=== PATIENT | male | born 1970 | race Caucasian/White ===

== ENCOUNTER → 2016-10-18 | Outpatient (REF) | payer OTHER ==
[2016-10-18 20:10] LABS: ALBUMIN 3.3 GM/DL (3.2-5.2); ANION GAP 9 MEQ/L (8-16); BLOOD UREA NITROGEN 16 MG/DL (7-18); CALCIUM LEVEL 9.1 MG/DL (8.5-10.1); CARBON DIOXIDE LEVEL 26 MEQ/L (21-32); CHLORIDE LEVEL 102 MEQ/L (98-107); CREATININE FOR GFR 1.23 MG/DL (0.70-1.30); GLOMERULAR FILTRATION RATE > 60.0 (>60); GLUCOSE, FASTING 189 MG/DL (70-105); PHOSPHORUS LEVEL 2.7 MG/DL (2.5-4.9); POTASSIUM SERUM 4.1 MEQ/L (3.5-5.1); SODIUM LEVEL 137 MEQ/L (136-145); URIC ACID 6.2 MG/DL (3.5-7.2)
== END ==
LOC: M LAB REF 17:27
PROVIDERS: ATTEND Internal Medicine Nephrology
DX: N18.2 Chronic kidney disease, stage 2 (mild) (principal); E11.9 Type 2 diabetes mellitus without complications; I10 Essential (primary) hypertension; M10.9 Gout, unspecified

== ENCOUNTER → 2016-10-22 | Outpatient (CLI) | payer OTHER ==
[2016-10-22 13:30] LABS: ALBUMIN 3.4 GM/DL (3.2-5.2); ALBUMIN/GLOBULIN RATIO 0.97 (1.00-1.93); ALKALINE PHOSPHATASE 69 U/L (45-117); ALT/SGPT 53 U/L (12-78); ANION GAP 11 MEQ/L (8-16); AST/SGOT 25 U/L (15-37); BILIRUBIN,TOTAL 0.4 MG/DL (0.2-1.0); BLOOD UREA NITROGEN 18 MG/DL (7-18); CALCIUM LEVEL 8.7 MG/DL (8.5-10.1); CARBON DIOXIDE LEVEL 26 MEQ/L (21-32); CHLORIDE LEVEL 99 MEQ/L (98-107); CHOLESTEROL LEVEL 189 MG/DL (<200); CREATININE FOR GFR 1.22 MG/DL (0.70-1.30); GLOMERULAR FILTRATION RATE > 60.0 (>60); GLUCOSE, FASTING 208 MG/DL (70-105); POTASSIUM SERUM 4.4 MEQ/L (3.5-5.1); SODIUM LEVEL 136 MEQ/L (136-145); TOTAL PROTEIN 6.9 GM/DL (6.4-8.2); TRIGLYCERIDES LEVEL 221 MG/DL (<150)
== END ==
LOC: M WUC 10:33
PROVIDERS: ATTEND Nurse Practitioner Family
DX: I10 Essential (primary) hypertension (principal); Z13.220 Encounter for screening for lipoid disorders; Z12.5 Encounter for screening for malignant neoplasm of prostate

== ENCOUNTER 2017-10-03 15:03 | Emergency (ER) | payer MEDICAID | END 2017-10-03 16:12 | disposition left against medical advice (07) | LOC: M ED 15:03 | DX: M54.9 Dorsalgia, unspecified (principal); Z53.21 Procedure and treatment not carried out due to patient leaving prior to being seen by health care provider ==

== ENCOUNTER → 2017-10-03 | Outpatient (CLI) | payer OTHER ==
[2017-10-03 19:39] LABS: ALBUMIN 3.6 GM/DL (3.2-5.2); ALKALINE PHOSPHATASE 66 U/L (45-117); ALT/SGPT 53 U/L (12-78); ANION GAP 7 MEQ/L (8-16); AST/SGOT 23 U/L (7-37); BILIRUBIN,TOTAL 0.4 MG/DL (0.2-1.0); BLOOD UREA NITROGEN 14 MG/DL (7-18); CALCIUM LEVEL 9.3 MG/DL (8.5-10.1); CARBON DIOXIDE LEVEL 27 MEQ/L (21-32); CHLORIDE LEVEL 105 MEQ/L (98-107); CREATININE FOR GFR 1.05 MG/DL (0.70-1.30); GLOMERULAR FILTRATION RATE > 60.0 (>60); GLUCOSE, FASTING 106 MG/DL (70-100); LIPASE 1445 U/L (73-393); POTASSIUM SERUM 4.5 MEQ/L (3.5-5.1); SODIUM LEVEL 139 MEQ/L (136-145); TOTAL PROTEIN 7.2 GM/DL (6.4-8.2)
[2017-10-03 19:50] LABS: BASO # 0.1 10^3/uL (0.0-0.2); BASO % 0.6 % (0.0-1.0); EOS # 0.5 10^3/uL (0.0-0.50); EOS % 4.3 % (0.0-3.0); HEMATOCRIT 45.7 % (42.0-52.0); HEMOGLOBIN 14.9 g/dl (14.0-18.0); IMMATURE GRANULOCYTE % 0.4 % (0-3.0); LYMPH % 24.7 % (24.0-44.0); MEAN CORPUSCULAR HEMOGLOBIN 30.4 pg (27.0-33.0); MEAN CORPUSCULAR HGB CONC 32.6 g/dl (32.0-36.5); MEAN CORPUSCULAR VOLUME 93.3 fl (80.0-96.0); MONO # 0.7 10^3/uL (0.0-0.8); MONO % 5.7 % (0.0-5.0); NEUTROPHILS # 7.9 10^3/uL (1.8-7.7); NEUTROPHILS % 64.3 % (36.0-66.0); PLATELET COUNT, AUTOMATED 281 10^3/uL (150-450); RED CELL DISTRIBUTION WIDTH 15.1 % (11.5-14.5); WHITE BLOOD COUNT 12.2 10^3/uL (4.0-10.0)
== END ==
LOC: M WUC 17:39
DX: Q25.46 Tortuous aortic arch (principal); M51.35 Other intervertebral disc degeneration, thoracolumbar region; R09.1 Pleurisy
CPT/HCPCS: 83690

== ENCOUNTER → 2017-10-04 | Outpatient (CLI) | payer OTHER ==
[~2017-10-04] MED LIST: GASTROGRAFIN SOLUTION 30ML (Q9963) As Ordered; ISOVUE-370 76% 100ML VIAL (Q9967) As Ordered
== END ==
LOC: M RAD 10:26
DX: R10.10 Upper abdominal pain, unspecified (principal); K76.0 Fatty (change of) liver, not elsewhere classified
CPT/HCPCS: Q9963

== ENCOUNTER → 2017-10-20 | Outpatient (CLI) | payer OTHER ==
[2017-10-20 09:19] LABS: LIPASE 696 U/L (73-393)
[2017-10-20 09:19] LABS: AMYLASE 108 U/L (25-115)
== END ==
LOC: M WUC 08:10
DX: K86.1 Other chronic pancreatitis (principal)
CPT/HCPCS: 82150

== ENCOUNTER → 2017-10-20 | Outpatient (CLI) | payer OTHER ==
[2017-10-20 08:50] LABS: BASO # 0.1 10^3/uL (0.0-0.2); BASO % 0.6 % (0.0-1.0); EOS # 0.5 10^3/uL (0.0-0.50); EOS % 4.3 % (0.0-3.0); HEMATOCRIT 47.5 % (42.0-52.0); HEMOGLOBIN 15.8 g/dl (14.0-18.0); IMMATURE GRANULOCYTE % 0.5 % (0-3.0); LYMPH # 3.4 10^3/uL (1.5-4.5); LYMPH % 30.5 % (24.0-44.0); MEAN CORPUSCULAR HEMOGLOBIN 31.1 pg (27.0-33.0); MEAN CORPUSCULAR HGB CONC 33.3 g/dl (32.0-36.5); MEAN CORPUSCULAR VOLUME 93.5 fl (80.0-96.0); MONO # 0.8 10^3/uL (0.0-0.8); MONO % 7.4 % (0.0-5.0); NEUTROPHILS # 6.3 10^3/uL (1.8-7.7); NEUTROPHILS % 56.7 % (36.0-66.0); PLATELET COUNT, AUTOMATED 277 10^3/uL (150-450); RED BLOOD COUNT 5.08 10^6/uL (4.30-6.10); RED CELL DISTRIBUTION WIDTH 15.2 % (11.5-14.5); WHITE BLOOD COUNT 11.1 10^3/uL (4.0-10.0)
[2017-10-20 09:25] LABS: ALBUMIN 3.5 GM/DL (3.2-5.2); ALBUMIN/GLOBULIN RATIO 0.92 (1.00-1.93); ALKALINE PHOSPHATASE 62 U/L (45-117); ALT/SGPT 67 U/L (12-78); AMYLASE 109 U/L (25-115); ANION GAP 8 MEQ/L (8-16); AST/SGOT 33 U/L (7-37); BILIRUBIN,TOTAL 0.4 MG/DL (0.2-1.0); BLOOD UREA NITROGEN 12 MG/DL (7-18); CALCIUM LEVEL 9.3 MG/DL (8.5-10.1); CARBON DIOXIDE LEVEL 28 MEQ/L (21-32); CHLORIDE LEVEL 104 MEQ/L (98-107); CHOLESTEROL LEVEL 182 MG/DL (<200); CHOLESTEROL RISK RATIO 5.352 (<5); CREATININE FOR GFR 1.17 MG/DL (0.70-1.30); GLOMERULAR FILTRATION RATE > 60.0 (>60); GLUCOSE, FASTING 143 MG/DL (70-100); HDL CHOLESTEROL 34 MG/DL (>40); NON-HDL-C 148 MG/DL; POTASSIUM SERUM 4.3 MEQ/L (3.5-5.1); SODIUM LEVEL 140 MEQ/L (136-145); TOTAL PROTEIN 7.3 GM/DL (6.4-8.2); TRIGLYCERIDES LEVEL 195 MG/DL (<150)
== END ==
LOC: M WUC 08:15
DX: R74.8 Abnormal levels of other serum enzymes (principal)
CPT/HCPCS: 80053

== ENCOUNTER → 2017-10-24 | Outpatient (CLI) | payer OTHER | LOC: M RAD 06:07 | DX: K86.1 Other chronic pancreatitis (principal) | CPT/HCPCS: 76705 ==

== ENCOUNTER → 2017-10-24 | Outpatient (CLI) | payer OTHER | LOC: M WUC 10:47 | DX: M54.9 Dorsalgia, unspecified (principal); M48.14 Ankylosing hyperostosis [Forestier], thoracic region | CPT/HCPCS: 72072 ==

== ENCOUNTER → 2017-11-11 | Outpatient (CLI) | payer OTHER | LOC: M RAD 10:11 | DX: K85.80 Other acute pancreatitis without necrosis or infection (principal) | CPT/HCPCS: 74181 ==

== ENCOUNTER → 2018-07-06 | Outpatient (CLI) | payer OTHER ==
[2018-07-06 10:11] LABS: BASO # 0.1 10^3/uL (0.0-0.2); BASO % 0.4 % (0.0-1.0); EOS # 0.5 10^3/uL (0.0-0.50); EOS % 3.9 % (0.0-3.0); HEMATOCRIT 45.5 % (42.0-52.0); HEMOGLOBIN 14.8 g/dl (13.5-17.5); IMMATURE GRANULOCYTE % 0.3 % (0-3.0); LYMPH # 3.3 10^3/uL (1.5-4.5); MEAN CORPUSCULAR HEMOGLOBIN 30.6 pg (27.0-33.0); MEAN CORPUSCULAR HGB CONC 32.5 g/dl (32.0-36.5); MONO # 0.7 10^3/uL (0.0-0.8); MONO % 5.8 % (0.0-5.0); NEUTROPHILS # 7.2 10^3/uL (1.8-7.7); NEUTROPHILS % 61.6 % (36.0-66.0); PLATELET COUNT, AUTOMATED 259 10^3/uL (150-450); RED BLOOD COUNT 4.84 10^6/uL (4.30-6.10); RED CELL DISTRIBUTION WIDTH 15.1 % (11.5-14.5); WHITE BLOOD COUNT 11.7 10^3/uL (4.0-10.0)
[2018-07-06 11:08] LABS: ESTIMATED AVERAGE GLUCOSE 160 MG/DL (60-110); HEMOGLOBIN A1c 7.2 %
[2018-07-06 11:31] LABS: MAU/CREAT RATIO 603.5 MCG/MG (0.0-30.0)
[2018-07-06 12:55] LABS: ALBUMIN 3.3 GM/DL (3.2-5.2); ALBUMIN/GLOBULIN RATIO 0.83 (1.00-1.93); ALKALINE PHOSPHATASE 63 U/L (45-117); ALT/SGPT 54 U/L (12-78); ANION GAP 9 MEQ/L (8-16); AST/SGOT 23 U/L (7-37); BILIRUBIN,TOTAL 0.5 MG/DL (0.2-1.0); BLOOD UREA NITROGEN 16 MG/DL (7-18); CALCIUM LEVEL 9.2 MG/DL (8.5-10.1); CARBON DIOXIDE LEVEL 29 MEQ/L (21-32); CHLORIDE LEVEL 102 MEQ/L (98-107); CHOLESTEROL LEVEL 194 MG/DL (<200); CHOLESTEROL RISK RATIO 5.105 (<5); CREATININE FOR GFR 1.23 MG/DL (0.70-1.30); GLOMERULAR FILTRATION RATE > 60.0 (>60); GLUCOSE, FASTING 111 MG/DL (70-100); HDL CHOLESTEROL 38 MG/DL (>40); LDL CHOLESTEROL 124 MG/DL (<100); NON-HDL-C 156 MG/DL; POTASSIUM SERUM 4.1 MEQ/L (3.5-5.1); PTH INTACT 32.5 PG/ML (18.5-88.0); SODIUM LEVEL 140 MEQ/L (136-145); TOTAL 25(OH) VITAMIN D 44.2 NG/ML (30.0-100.0); TOTAL PROTEIN 7.3 GM/DL (6.4-8.2); TRIGLYCERIDES LEVEL 159 MG/DL (<150)
[2018-07-07 14:13] LABS: INSULIN LEVEL 54.8 uIU/mL (2.6-24.9)
== END ==
LOC: M WUC 08:23
DX: I12.9 Hypertensive chronic kidney disease with stage 1 through stage 4 chronic kidney disease, or unspecified chronic kidney disease (principal); N18.3 Chronic kidney disease, stage 3 (moderate); E11.22 Type 2 diabetes mellitus with diabetic chronic kidney disease; E78.5 Hyperlipidemia, unspecified; E55.9 Vitamin D deficiency, unspecified
CPT/HCPCS: 83525

== ENCOUNTER → 2018-08-29 | Outpatient (CLI) | payer OTHER ==
[~2018-08-29] MED LIST changes: +ALOG12.5; +ASPI1TAB15; +FURO80TA2; -GASTROGRAFIN SOLUTION 30ML (Q9963) As Ordered; +GLIP5TAB20; +HYDR10TAB; -ISOVUE-370 76% 100ML VIAL (Q9967) As Ordered; +LOSA50TA88; +METF10004; +METO100T5; +POTA10808; +SPIR-10; +VITA50005; +ZYLO300T6
--- NOTE | 2018-08-30 05:39 | REP ---
Clinical: Venous insufficiency . Technique: Cook scale and color Doppler evaluation using linear high frequency transducer with reflux evaluation. Findings: Ultrasound examination of the right and left lower extremity deep venous structures from the common femoral vein to the popliteal vein demonstrates normal compressibility flow and wave patterns in response to respiration and augmentation. There is no evidence for deep venous thrombosis. Left Cleveland's cyst measures 1.8 x 0.6 x 1.2 cm. Reflux evaluation of the right lower extremity demonstrates reflux through the deep venous system including common femoral vein, superficial femoral vein and popliteal vein. Reflux also identified at the proximal greater saphenous vein which is duplicated measuring 5.0 mm and 5.9 mm diameter along with reflux duration of 6.3 seconds and 5.9 seconds respectively. Further reflux noted of the mid greater saphenous vein measuring 7.3 mm diameter with reflux duration 3.2 seconds, and distal greater saphenous vein at the level of the knee measuring 6.9 mm diameter with a reflux duration of 5.5 seconds. Reflux evaluation of the left lower extremity demonstrates reflux through the deep venous system including common femoral vein, superficial femoral vein, and popliteal vein. Reflux also identified through the superficial system including proximal greater saphenous vein measuring 6.5 mm diameter with duration of 3.3 seconds, mid greater saphenous vein measuring 6.5 mm diameter with duration of 4.0 seconds, and lesser saphenous vein measuring 5.1 mm diameter with duration of 5.3 seconds. Impression: 1. No evidence for deep venous thrombosis. 2. Significant bilateral reflux disease. 3. Cleveland's cyst in the left popliteal fossa. Electronically Signed by Rubens Dos Santos MD 08/30/2018 05:30 A
== END ==
LOC: M RAD 11:30
PROVIDERS: ATTEND Nurse Practitioner Family
DX: R60.9 Edema, unspecified (principal); M71.21 Synovial cyst of popliteal space [Baker], right knee; I87.8 Other specified disorders of veins

== ENCOUNTER → 2018-11-23 | Outpatient (CLI) | payer OTHER ==
[2018-11-23 13:26] LABS: BASO % 0.3 % (0.0-1.0); EOS # 0.4 10^3/uL (0.0-0.50); EOS % 3.6 % (0.0-3.0); HEMATOCRIT 44.9 % (42.0-52.0); HEMOGLOBIN 14.2 g/dl (13.5-17.5); LYMPH # 3.4 10^3/uL (1.5-4.5); LYMPH % 27.6 % (24.0-44.0); MEAN CORPUSCULAR HEMOGLOBIN 30.1 pg (27.0-33.0); MEAN CORPUSCULAR HGB CONC 31.6 g/dl (32.0-36.5); MEAN CORPUSCULAR VOLUME 95.3 fl (80.0-96.0); MONO # 0.9 10^3/uL (0.0-0.8); NEUTROPHILS # 7.4 10^3/uL (1.8-7.7); PLATELET COUNT, AUTOMATED 273 10^3/uL (150-450); RED BLOOD COUNT 4.71 10^6/uL (4.30-6.10); WHITE BLOOD COUNT 12.2 10^3/uL (4.0-10.0)
[2018-11-23 13:31] LABS: ALBUMIN 3.4 GM/DL (3.2-5.2); ALT/SGPT 56 U/L (12-78); BILIRUBIN,TOTAL 0.6 MG/DL (0.2-1.0); BLOOD UREA NITROGEN 10 MG/DL (7-18); CARBON DIOXIDE LEVEL 28 MEQ/L (21-32); CHLORIDE LEVEL 104 MEQ/L (98-107); CHOLESTEROL LEVEL 115 MG/DL (<200); CHOLESTEROL RISK RATIO 3.484 (<5); CPK CREATINE PHOSPHOKINASE 59 U/L (39-308); CREATININE FOR GFR 1.18 MG/DL (0.70-1.30); GLOMERULAR FILTRATION RATE > 60.0 (>60); GLUCOSE, FASTING 139 MG/DL (70-100); HDL CHOLESTEROL 33 MG/DL (>40); LDL CHOLESTEROL 56 MG/DL (<100); MAGNESIUM LEVEL 2.1 MG/DL (1.8-2.4); MB/CK RELATIVE INDEX 1.86 (< OR =4); NON-HDL-C 82 MG/DL; POTASSIUM SERUM 4.1 MEQ/L (3.5-5.1); SODIUM LEVEL 138 MEQ/L (136-145); TRIGLYCERIDES LEVEL 131 MG/DL (<150); URIC ACID 5.6 MG/DL (3.5-7.2)
[2018-11-23 14:08] LABS: HEMOGLOBIN A1c 7.1 %
== END ==
LOC: M WUC 08:48
PROVIDERS: ATTEND Nurse Practitioner Family
DX: E11.9 Type 2 diabetes mellitus without complications (principal); E78.5 Hyperlipidemia, unspecified; N18.3 Chronic kidney disease, stage 3 (moderate); I10 Essential (primary) hypertension

== ENCOUNTER 2018-12-21 09:17 | Outpatient (RCR) | payer OTHER | END 2018-12-22 | LOC: M PT 09:17 | PROVIDERS: ATTEND Nurse Practitioner Family | DX: I87.2 Venous insufficiency (chronic) (peripheral) (principal) ==

== ENCOUNTER → 2018-12-22 | Outpatient (RCR) | payer OTHER | LOC: M PT 12-11 11:33 | PROVIDERS: ATTEND Orthopaedic Surgery | DX: S46.012D Strain of muscle(s) and tendon(s) of the rotator cuff of left shoulder, subsequent encounter (principal); X58.XXXD Exposure to other specified factors, subsequent encounter ==

== ENCOUNTER 2019-01-18 08:30 | Outpatient (RCR) | payer OTHER | END 2019-01-21 | LOC: M PT 08:30 | PROVIDERS: ATTEND Orthopaedic Surgery | DX: S46.012D Strain of muscle(s) and tendon(s) of the rotator cuff of left shoulder, subsequent encounter (principal); X58.XXXD Exposure to other specified factors, subsequent encounter ==

== ENCOUNTER 2019-01-18 08:41 | Outpatient (RCR) | payer OTHER | END 2019-01-21 | LOC: M PT 08:41 | PROVIDERS: ATTEND Nurse Practitioner Family | DX: I87.2 Venous insufficiency (chronic) (peripheral) (principal) ==

== ENCOUNTER 2019-01-23 12:44 | Outpatient (RCR) | payer OTHER | END 2019-02-21 | LOC: M PT 12:44 | PROVIDERS: ATTEND Nurse Practitioner Family | DX: I89.0 Lymphedema, not elsewhere classified (principal); I87.2 Venous insufficiency (chronic) (peripheral) ==

== ENCOUNTER 2019-02-15 08:23 | Outpatient (RCR) | payer OTHER | END 2019-02-21 | LOC: M PT 08:23 | PROVIDERS: ATTEND Orthopaedic Surgery | DX: S42.012D Anterior displaced fracture of sternal end of left clavicle, subsequent encounter for fracture with routine healing (principal) ==

== ENCOUNTER 2019-03-22 08:30 | Outpatient (RCR) | payer OTHER | END 2019-03-24 | LOC: M PT 08:30 | PROVIDERS: ATTEND Orthopaedic Surgery | DX: S46.012D Strain of muscle(s) and tendon(s) of the rotator cuff of left shoulder, subsequent encounter (principal); M25.512 Pain in left shoulder ==

== ENCOUNTER 2019-03-29 08:30 | Outpatient (RCR) | payer OTHER | END 2019-04-23 | LOC: M PT 08:30 | PROVIDERS: ATTEND Orthopaedic Surgery | DX: Z47.89 Encounter for other orthopedic aftercare (principal); Z98.890 Other specified postprocedural states; M25.512 Pain in left shoulder ==

== ENCOUNTER → 2019-05-24 | Outpatient (RCR) | payer OTHER | LOC: M PT 05-16 12:23 | PROVIDERS: ATTEND Orthopaedic Surgery | DX: Z98.890 Other specified postprocedural states (principal) ==

== ENCOUNTER 2019-06-20 12:55 | Outpatient (RCR) | payer OTHER | END 2019-06-23 | LOC: M PT 12:55 | PROVIDERS: ATTEND Orthopaedic Surgery | DX: Z47.89 Encounter for other orthopedic aftercare (principal) ==

== ENCOUNTER → 2019-07-30 | Outpatient (REF) | payer OTHER ==
[2019-07-30 17:41] LABS: ALBUMIN 3.1 GM/DL (3.2-5.2); BLOOD UREA NITROGEN 14 MG/DL (7-18); CALCIUM LEVEL 9.2 MG/DL (8.5-10.1); CARBON DIOXIDE LEVEL 24 MEQ/L (21-32); CHLORIDE LEVEL 105 MEQ/L (98-107); CREATININE FOR GFR 1.13 MG/DL (0.70-1.30); GLOMERULAR FILTRATION RATE > 60.0 (>60); GLUCOSE, FASTING 114 MG/DL (70-100); PHOSPHORUS LEVEL 2.6 MG/DL (2.5-4.9); POTASSIUM SERUM 4.6 MEQ/L (3.5-5.1); SODIUM LEVEL 137 MEQ/L (136-145)
== END ==
LOC: M LAB REF 17:10
PROVIDERS: ATTEND Internal Medicine Nephrology
DX: N18.1 Chronic kidney disease, stage 1 (principal); M10.9 Gout, unspecified

== ENCOUNTER → 2019-09-04 | Outpatient (REF) | payer OTHER ==
[2019-09-04 13:36] LABS: BASO % 0.1 % (0.0-1.0); EOS # 0.9 10^3/uL (0.0-0.5); EOS % 6.6 % (0.0-3.0); HEMATOCRIT 49.4 % (42.0-52.0); HEMOGLOBIN 16.1 g/dl (13.5-17.5); LYMPH # 1.6 10^3/uL (1.5-5.0); LYMPH % 11.6 % (24.0-44.0); MEAN CORPUSCULAR HEMOGLOBIN 30.7 pg (27.0-33.0); MEAN CORPUSCULAR HGB CONC 32.6 g/dl (32.0-36.5); MEAN CORPUSCULAR VOLUME 94.3 fl (80.0-96.0); MONO # 0.8 10^3/uL (0.0-0.8); MONO % 6.1 % (0.0-5.0); NEUTROPHILS # 10.1 10^3/uL (1.5-8.5); NEUTROPHILS % 74.6 % (36.0-66.0); PLATELET COUNT, AUTOMATED 277 10^3/uL (150-450); RED BLOOD COUNT 5.24 10^6/uL (4.30-6.10); WHITE BLOOD COUNT 13.6 10^3/uL (4.0-10.0)
[2019-09-04 14:01] LABS: ALBUMIN 3.6 GM/DL (3.2-5.2); ALT/SGPT 29 U/L (12-78); BILIRUBIN,TOTAL 0.5 MG/DL (0.2-1.0); BLOOD UREA NITROGEN 16 MG/DL (7-18); CALCIUM LEVEL 9.5 MG/DL (8.5-10.1); CARBON DIOXIDE LEVEL 26 MEQ/L (21-32); CHLORIDE LEVEL 106 MEQ/L (98-107); CHOLESTEROL LEVEL 127 MG/DL (<200); CHOLESTEROL RISK RATIO 3.628 (<5); CREATININE FOR GFR 1.18 MG/DL (0.70-1.30); FREE T4 1.38 NG/DL (0.76-1.46); GLOMERULAR FILTRATION RATE > 60.0 (>60); GLUCOSE, FASTING 155 MG/DL (70-100); HDL CHOLESTEROL 35 MG/DL (>40); LDL CHOLESTEROL 71 MG/DL (<100); NON-HDL-C 92 MG/DL; POTASSIUM SERUM 4.8 MEQ/L (3.5-5.1); SODIUM LEVEL 138 MEQ/L (136-145); TOTAL PROTEIN 7.2 GM/DL (6.4-8.2); TRIGLYCERIDES LEVEL 103 MG/DL (<150)
[2019-09-04 14:31] LABS: HEMOGLOBIN A1c 6.4 %
== END ==
LOC: M SFHCPLAZ 11:42
PROVIDERS: ATTEND Physician Assistant Medical
DX: R19.7 Diarrhea, unspecified (principal); I10 Essential (primary) hypertension; E11.9 Type 2 diabetes mellitus without complications; E78.5 Hyperlipidemia, unspecified; M10.9 Gout, unspecified

== ENCOUNTER → 2019-09-05 | Outpatient (REF) | payer OTHER | LOC: M SFHCPLAZ 09:57 | PROVIDERS: ATTEND Physician Assistant Medical | DX: R19.7 Diarrhea, unspecified (principal) ==

== ENCOUNTER → 2020-06-12 | Outpatient (CLI) | payer OTHER ==
[~2020-06-12] MED LIST changes: +ASPI-546; -ASPI1TAB15
[2020-06-12 09:42] LABS: HEMOGLOBIN A1c 8.6 %
[2020-06-12 09:44] LABS: ALBUMIN 3.2 GM/DL (3.2-5.2); ALT/SGPT 56 U/L (12-78); BILIRUBIN,TOTAL 0.5 MG/DL (0.2-1.0); BLOOD UREA NITROGEN 11 MG/DL (7-18); CALCIUM LEVEL 9.3 MG/DL (8.5-10.1); CARBON DIOXIDE LEVEL 25 MEQ/L (21-32); CHLORIDE LEVEL 104 MEQ/L (98-107); CHOLESTEROL LEVEL 141 MG/DL (<200); CHOLESTEROL RISK RATIO 3.525 (<5); CREATININE FOR GFR 1.12 MG/DL (0.70-1.30); FREE T4 1.46 NG/DL (0.76-1.46); GLOMERULAR FILTRATION RATE > 60.0 (>60); GLUCOSE, FASTING 165 MG/DL (70-100); HDL CHOLESTEROL 40 MG/DL (>40); LDL CHOLESTEROL 65 MG/DL (<100); NON-HDL-C 101 MG/DL; POTASSIUM SERUM 4.4 MEQ/L (3.5-5.1); SODIUM LEVEL 135 MEQ/L (136-145); TRIGLYCERIDES LEVEL 178 MG/DL (<150); URIC ACID 4.9 MG/DL (3.5-7.2)
[2020-06-12 11:47] LABS: TOTAL 25(OH) VITAMIN D 43.3 NG/ML (30.0-100.0)
[2020-06-12 15:30] LABS: CREATININE, URINE 93.5 MG/DL; MAU/CREAT RATIO 715.5 MCG/MG (0.0-30.0)
== END ==
LOC: M LAB 08:10
PROVIDERS: ATTEND Nurse Practitioner Family
DX: M10.9 Gout, unspecified (principal); Z23 Encounter for immunization; E11.9 Type 2 diabetes mellitus without complications; E78.5 Hyperlipidemia, unspecified; E55.9 Vitamin D deficiency, unspecified

== ENCOUNTER → 2020-06-12 | Outpatient (CLI) | payer OTHER ==
--- NOTE | 2020-06-14 07:31 | REP ---
INDICATION: RIGHT FLANK PAIN COMPARISON: 06/23/2011 TECHNIQUE: Real time B-mode banks scale ultrasound examination using curved array transducer. FINDINGS: Bilateral kidneys are normal in contour, size, echogenicity, and reniform shape. No hydronephrosis, nephrolithiasis, cystic or renal mass lesion. No perinephric fluid collection. Right kidney measures 12.0 x 5.4 x 5.5 cm. Left kidney measures 12.0 x 6.7 x 5.4 cm. Bladder appears normal. IMPRESSION: Normal renal ultrasound. <Electronically signed by Rubens Dos Santos > 06/14/20 0727
== END ==
LOC: M RAD 13:57
PROVIDERS: ATTEND Nurse Practitioner Family
DX: R10.9 Unspecified abdominal pain (principal)

== ENCOUNTER → 2020-06-26 | Outpatient (CLI) | payer OTHER ==
[~2020-06-26] MED LIST changes: +ISOVUE-370 76% 100ML VIAL As Ordered ONE
--- NOTE | 2020-07-07 15:48 | REP ---
INDICATION: RT FLANK PAIN. Repeat dictation. The study was acquired on June 26, 2020 and is presented to me for repeat dictation on July 07, 2020. COMPARISON: Comparison CT study October 04, 2017.. TECHNIQUE: Helical scanning is acquired and 3 mm axial images re-formatted. Coronal and sagittal MPR images are generated. The CT contrast enhancement dose is 100 mL of intravenous Isovue 370. 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 Normal bowel gas pattern. 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 The lung bases are clear on axial CT images. There is moderate diffuse fatty infiltration of the liver.0 there are 3 cylindrical density calcified or metallic densities within the gastric fundus on today's CT study. Undigested capsules versus endoscopically placed mucosal clips. No focal hepatic lesion or splenic lesion is seen. No pancreatic mass or cyst is observed. Gallbladder is unremarkable. Normal adrenal glands are seen bilaterally. There is no evidence of hydronephrosis. There is an intrarenal calculus in the lower pole of the left kidney measuring 8 mm in size. This is little larger but otherwise unchanged from the 2018 study. No retroperitoneal mass or adenopathy is seen. Normal caliber aorta is noted. Prostate seminal vesicles and urinary bladder are unremarkable. No abdominal wall defect is seen. Small bowel and large bowel loops are unremarkable. Ileocecal valve and cecum or in the right mid abdomen lateral to the liver edge consistent with mesenteric right colon. The appendix is not confidently identified but there are no inflammatory changes to suggest appendicitis. IMPRESSION: Fatty infiltration of the liver. Intrarenal nephrolithiasis left kidney. No hydronephrosis or ureteral stone seen. No acute abdominal or pelvic abnormality. <Electronically signed by Sudheer Boss > 07/07/20 [id number]
== END ==
LOC: M RAD 12:54
PROVIDERS: ATTEND Nurse Practitioner Family
DX: R10.9 Unspecified abdominal pain (principal); M17.0 Bilateral primary osteoarthritis of knee; K76.0 Fatty (change of) liver, not elsewhere classified; N20.0 Calculus of kidney
CPT/HCPCS: 74177; Q9967

== ENCOUNTER → 2021-04-16 | Outpatient (REF) | payer OTHER ==
[~2021-04-16] MED LIST changes: -ISOVUE-370 76% 100ML VIAL As Ordered ONE
== END ==
LOC: M LAB REF 17:19
PROVIDERS: ATTEND Internal Medicine Nephrology
DX: N18.2 Chronic kidney disease, stage 2 (mild) (principal)

== ENCOUNTER → 2021-06-12 | Outpatient (CLI) | payer OTHER ==
--- NOTE | 2021-06-12 10:52 | REP ---
INDICATION: OTHER SPECIFIED SOFT TISSUE DISORDERS COMPARISON: None. TECHNIQUE: AP, lateral, bilateral oblique views right and left hand. FINDINGS: Right hand: Early generalized degenerative changes include elements of subchondral sclerosis, and joint space narrowing. Early osteophyte formation is also identified at the 1st metacarpophalangeal and interphalangeal joints. No acute fracture or dislocation. Left hand: Early generalized degenerative changes include elements of subchondral sclerosis, and joint space narrowing. No acute fracture or dislocation. IMPRESSION: Early generalized degenerative changes (right greater than left). <Electronically signed by Rubens Dos Santos > 06/12/21 1040
== END ==
LOC: M PLAIMG 09:23
PROVIDERS: ATTEND Nurse Practitioner Family
DX: M79.89 Other specified soft tissue disorders (principal); M19.042 Primary osteoarthritis, left hand; M19.041 Primary osteoarthritis, right hand

== ENCOUNTER → 2021-06-12 | Outpatient (CLI) | payer OTHER ==
--- NOTE | 2021-06-12 10:14 | REP ---
INDICATION: UNSPECIFIED INJURY OF RIGHT LOWER LEG, INITIAL ENCOUNTER COMPARISON: None. TECHNIQUE: AP, lateral, bilateral oblique views of the right knee FINDINGS: Advanced tricompartmental osteoarthritic degenerative changes are appreciated. There is no evidence for acute fracture or dislocation. No effusion. No subcutaneous emphysema or foreign body. IMPRESSION: Advanced degenerative changes. No acute fracture or dislocation. <Electronically signed by Rubens Dos Santos > 06/12/21 1019
== END ==
LOC: M PLAIMG 09:20
PROVIDERS: ATTEND Physician Assistant
DX: S89.91XA Unspecified injury of right lower leg, initial encounter (principal); M23.91 Unspecified internal derangement of right knee; M17.11 Unilateral primary osteoarthritis, right knee; Y92.9 Unspecified place or not applicable; Y93.9 Activity, unspecified; Y99.9 Unspecified external cause status

== ENCOUNTER → 2022-06-14 | Outpatient (CLI) | payer OTHER ==
[~2022-06-14] MED LIST changes: +LOSA50TA28; -LOSA50TA88
[2022-06-14 13:55] LABS: BASO # 0.1 10^3/uL (0.0-0.2); BASO % 0.5 % (0.0-1.0); EOS # 0.3 10^3/uL (0.0-0.5); EOS % 3.1 % (0.0-3.0); HEMATOCRIT 48.6 % (42.0-52.0); HEMOGLOBIN 15.9 g/dl (13.5-17.5); LYMPH # 2.2 10^3/uL (1.5-5.0); LYMPH % 21.3 % (24.0-44.0); MEAN CORPUSCULAR HEMOGLOBIN 30.8 pg (27.0-33.0); MEAN CORPUSCULAR HGB CONC 32.7 g/dl (32.0-36.5); MEAN CORPUSCULAR VOLUME 94.2 fl (80.0-96.0); MONO # 0.7 10^3/uL (0.0-0.8); MONO % 6.5 % (2.0-8.0); NEUTROPHILS # 6.9 10^3/uL (1.5-8.5); NEUTROPHILS % 68.1 % (36.0-66.0); PLATELET COUNT, AUTOMATED 228 10^3/uL (150-450); RED BLOOD COUNT 5.16 10^6/uL (4.30-6.10); WHITE BLOOD COUNT 10.2 10^3/uL (4.0-10.0)
[2022-06-14 14:21] LABS: HEMOGLOBIN A1c 10.8 % (4.0-6.0)
[2022-06-14 14:28] LABS: CREATININE, URINE 18.8 MG/DL; MAU/CREAT RATIO 1292.5 MCG/MG (0.0-30.0)
[2022-06-15 00:01] LABS: ALBUMIN 3.2 G/DL (3.2-5.2); ALT/SGPT 36 U/L (7.0-40); BILIRUBIN,TOTAL 0.4 MG/DL (0.3-1.2); BLOOD UREA NITROGEN 14 MG/DL (9-23); CARBON DIOXIDE LEVEL 23 MMOL/L (20-31); CHLORIDE LEVEL 99 MMOL/L (98-107); CHOLESTEROL LEVEL 147 MG/DL (<200); CHOLESTEROL RISK RATIO 4.03 (<5); CREATININE FOR GFR 0.93 MG/DL (0.70-1.30); GLOMERULAR FILTRATION RATE > 60.0 (>56); GLUCOSE, FASTING 451 MG/DL (60-100); HDL CHOLESTEROL 36.4 MG/DL (>40); NON-HDL-C 111 MG/DL; POTASSIUM SERUM 4.5 MMOL/L (3.5-5.1); SODIUM LEVEL 134 MMOL/L (136-145); TOTAL 25(OH) VITAMIN D 35.8 NG/ML (20.0-100.0); TOTAL PROTEIN 6.2 G/DL (5.7-8.2); TRIGLYCERIDES LEVEL 243 MG/DL (<150); URIC ACID 4.7 MG/DL (3.7-9.2); VITAMIN B12 LEVEL 628 PG/ML (211-911)
[2022-06-15 00:05] LABS: FOLATE > 24.0 NG/ML (>5.4)
== END ==
LOC: M PLALAB 11:26
PROVIDERS: ATTEND Nurse Practitioner Family
DX: E11.9 Type 2 diabetes mellitus without complications (principal); E78.5 Hyperlipidemia, unspecified; E55.9 Vitamin D deficiency, unspecified; M10.9 Gout, unspecified

== ENCOUNTER 2022-09-23 10:03 | Emergency (ER) | payer OTHER ==
[~2022-09-23] VITALS: Ht 188 cm; Wt 136.8 kg
[2022-09-23] MEDS ORDERED: MORPHINE 2 MG/ML 1ML VIAL IV PRN (10:35)
[2022-09-23] MEDS ORDERED: ISOVUE-370 76% 100ML VIAL As Ordered ONE (11:04)
[2022-09-23 11:09] LABS: BASO # 0.1 10^3/uL (0.0-0.2); BASO % 0.4 % (0.0-1.0); EOS # 0.3 10^3/uL (0.0-0.5); EOS % 2.3 % (0.0-3.0); HEMATOCRIT 50.1 % (42.0-52.0); HEMOGLOBIN 16.3 g/dl (13.5-17.5); LYMPH % 17.1 % (24.0-44.0); MEAN CORPUSCULAR HEMOGLOBIN 30.6 pg (27.0-33.0); MEAN CORPUSCULAR HGB CONC 32.5 g/dl (32.0-36.5); MONO # 0.8 10^3/uL (0.0-0.8); MONO % 6.8 % (2.0-8.0); NEUTROPHILS # 8.4 10^3/uL (1.5-8.5); PLATELET COUNT, AUTOMATED 262 10^3/uL (150-450); RED BLOOD COUNT 5.33 10^6/uL (4.30-6.10); WHITE BLOOD COUNT 11.6 10^3/uL (4.0-10.0)
[2022-09-23 11:31] LABS: LIPASE 48 U/L (12-53)
[2022-09-23 11:32] LABS: INR 0.87; PARTIAL THROMBOPLASTIN TIME 24.5 SECONDS (24.8-34.2)
[2022-09-23 11:33] LABS: AMYLASE 98 U/L (30-118)
[2022-09-23 11:37] LABS: ALBUMIN 3.4 G/DL (3.2-5.2); ALKALINE PHOSPHATASE 69 U/L (46-116); ALT/SGPT 35 U/L (7.0-40); AST/SGOT 22 U/L (<34); BILIRUBIN,DIRECT 0.2 MG/DL (<0.4); BILIRUBIN,TOTAL 0.8 MG/DL (0.3-1.2); CK-MB VALUE MASS 1.5 NG/ML (<3.6); TOTAL PROTEIN 6.7 G/DL (5.7-8.2)
[2022-09-23 11:38] LABS: CPK CREATINE PHOSPHOKINASE 89 U/L (46-171); MB/CK RELATIVE INDEX 1.68 (< OR =4)
[2022-09-23 11:41] LABS: RSV AMPLIFICATION NEGATIVE (NEGATIVE)
[2022-09-23] MEDS ORDERED: KETOROLAC 30 MG/ML 1ML VIAL IV ONE (12:25)
[2022-09-23 13:15] VITALS: BP 112/56
[2022-09-23] MEDS ORDERED: KETO10TAB PO (13:20)
== END 2022-09-23 13:38 | disposition home or self-care (01) ==
LOC: M ED 10:03
DX: S62.524A Nondisplaced fracture of distal phalanx of right thumb, initial encounter for closed fracture (principal); M54.50 Low back pain, unspecified; W10.8XXA Fall (on) (from) other stairs and steps, initial encounter; Y92.009 Unspecified place in unspecified non-institutional (private) residence as the place of occurrence of the external cause; M25.78 Osteophyte, vertebrae; M50.20 Other cervical disc displacement, unspecified cervical region; K76.0 Fatty (change of) liver, not elsewhere classified; E11.9 Type 2 diabetes mellitus without complications; E03.9 Hypothyroidism, unspecified; I12.9 Hypertensive chronic kidney disease with stage 1 through stage 4 chronic kidney disease, or unspecified chronic kidney disease; N18.30 Chronic kidney disease, stage 3 unspecified; G47.33 Obstructive sleep apnea (adult) (pediatric); M10.9 Gout, unspecified; Z87.891 Personal history of nicotine dependence; Z79.82 Long term (current) use of aspirin; Z79.899 Other long term (current) drug therapy; Z79.84 Long term (current) use of oral hypoglycemic drugs
CPT/HCPCS: 70450; 71260; 72125; 73130; 74177; 80047; 80076; 82150; 82550; 82553; 83605; 83690; 85025; 85610; 85730; 87631; 93041; 94760; 96374; 96375; 99285; J1885; J2270; Q9967

== ENCOUNTER → 2022-09-30 | Outpatient (CLI) | payer OTHER ==
[~2022-09-30] MED LIST changes: +KETO10TAB PO
[2022-09-30 18:22] LABS: BASO # 0.1 10^3/uL (0.0-0.2); BASO % 0.6 % (0.0-1.0); EOS # 0.5 10^3/uL (0.0-0.5); EOS % 4.3 % (0.0-3.0); HEMATOCRIT 49.5 % (42.0-52.0); HEMOGLOBIN 16.4 g/dl (13.5-17.5); LYMPH # 2.7 10^3/uL (1.5-5.0); LYMPH % 24.5 % (24.0-44.0); MEAN CORPUSCULAR HEMOGLOBIN 30.8 pg (27.0-33.0); MEAN CORPUSCULAR HGB CONC 33.1 g/dl (32.0-36.5); MONO # 0.6 10^3/uL (0.0-0.8); MONO % 5.8 % (2.0-8.0); NEUTROPHILS # 7.1 10^3/uL (1.5-8.5); NEUTROPHILS % 64.4 % (36.0-66.0); PLATELET COUNT, AUTOMATED 278 10^3/uL (150-450); RED BLOOD COUNT 5.32 10^6/uL (4.30-6.10)
[2022-09-30 18:33] LABS: INR 0.91; PROTHROMBIN TIME 12.5 SECONDS (12.5-14.5)
[2022-09-30 18:34] LABS: PARTIAL THROMBOPLASTIN TIME 26.9 SECONDS (24.8-34.2)
[2022-09-30 18:53] LABS: ALBUMIN 3.4 G/DL (3.2-5.2); ALKALINE PHOSPHATASE 69 U/L (46-116); ALT/SGPT 37 U/L (7.0-40); AST/SGOT 23 U/L (<34); BILIRUBIN,TOTAL 0.6 MG/DL (0.3-1.2); BLOOD UREA NITROGEN 17 MG/DL (9-23); CALCIUM LEVEL 10.2 MG/DL (8.5-10.1); CARBON DIOXIDE LEVEL 26 MMOL/L (20-31); CHLORIDE LEVEL 101 MMOL/L (98-107); CREATININE FOR GFR 0.99 MG/DL (0.70-1.30); GLOMERULAR FILTRATION RATE > 60.0 (>56); GLUCOSE, FASTING 229 MG/DL (60-100); POTASSIUM SERUM 4.5 MMOL/L (3.5-5.1); SODIUM LEVEL 136 MMOL/L (136-145); TOTAL PROTEIN 6.7 G/DL (5.7-8.2)
[2022-09-30 18:56] LABS: TOTAL 25(OH) VITAMIN D 46.5 NG/ML (20.0-100.0)
[2022-09-30 18:58] LABS: HEPATITIS B SURFACE ANTIBODY NEGATIVE (POSITIVE)
[2022-09-30 19:09] LABS: HEPATITIS B SURFACE ANTIGEN NEGATIVE (NEGATIVE)
[2022-09-30 19:43] LABS: URIC ACID 5.7 MG/DL (3.7-9.2)
== END ==
LOC: M PLALAB 14:50
PROVIDERS: ATTEND Physician Assistant Medical
DX: K76.0 Fatty (change of) liver, not elsewhere classified (principal); N20.0 Calculus of kidney; S06.0X1S Concussion with loss of consciousness of 30 minutes or less, sequela; Y92.9 Unspecified place or not applicable; Y93.9 Activity, unspecified; E55.9 Vitamin D deficiency, unspecified; M10.9 Gout, unspecified

== ENCOUNTER → 2022-12-16 | Outpatient (CLI) | payer OTHER | LOC: M WHC 12:55 | PROVIDERS: ATTEND Nurse Practitioner Family | DX: N18.2 Chronic kidney disease, stage 2 (mild) (principal); N28.1 Cyst of kidney, acquired ==

== ENCOUNTER 2023-08-15 06:34 | Day surgery (SDC) | payer OTHER ==
[~2023-08-15] VITALS: Ht 188 cm; Wt 137.9 kg
[~2023-08-15 06:34] MED LIST changes: +ALLO100T PO; +ASPI81TA26 PO; +ATOR1TAB21 PO; +DULO1CAP6 PO; +FARX1TAB3 PO; +FURO80TA2 PO; +GABA-282 PO; +HYDR-161; -HYDR10TAB; +LIDOCAINE W/EPINEPHRINE 1% 20ML VIAL XX ONE; +LISI5TAB11 PO; +LORA-243 PO; +METF10004 PO; +METO100T5 PO; +POTA10808 PO; +SODIUM BICARBONATE 8.4% INJ 50MEQ 50ML VIAL XX ONE; +SPIR-10 PO; +TRUL0.5I SC; +VITA100093 PO
[2023-08-15] MEDS ORDERED: BACITRACIN OINTMENT 30GM TUBE As Ordered ONE (07:11)
== END 2023-08-15 08:48 | disposition home or self-care (01) ==
LOC: M SDC 06:34
PROVIDERS: ATTEND Orthopaedic Surgery Hand Surgery
DX: G56.01 Carpal tunnel syndrome, right upper limb (principal); E11.9 Type 2 diabetes mellitus without complications; G47.30 Sleep apnea, unspecified; I10 Essential (primary) hypertension; M10.9 Gout, unspecified; Z87.891 Personal history of nicotine dependence; J30.9 Allergic rhinitis, unspecified; Z91.048 Other nonmedicinal substance allergy status; Z79.899 Other long term (current) drug therapy; Z79.82 Long term (current) use of aspirin; Z79.84 Long term (current) use of oral hypoglycemic drugs; Z79.85 Long-term (current) use of injectable non-insulin antidiabetic drugs

== ENCOUNTER 2023-08-20 17:20 | Emergency (ER) | payer OTHER ==
[~2023-08-20] VITALS: Ht 188 cm; Wt 136.9 kg
[~2023-08-20 17:20] MED LIST changes: -LIDOCAINE W/EPINEPHRINE 1% 20ML VIAL XX ONE; -SODIUM BICARBONATE 8.4% INJ 50MEQ 50ML VIAL XX ONE
[2023-08-20 18:21] LABS: BASO % 0.4 % (0.0-1.0); EOS # 0.2 10^3/uL (0.0-0.5); EOS % 2.1 % (0.0-3.0); HEMATOCRIT 49.3 % (42.0-52.0); HEMOGLOBIN 16.7 g/dl (13.5-17.5); LYMPH # 2.2 10^3/uL (1.5-5.0); LYMPH % 23.3 % (24.0-44.0); MEAN CORPUSCULAR HEMOGLOBIN 30.8 pg (27.0-33.0); MEAN CORPUSCULAR HGB CONC 33.9 g/dl (32.0-36.5); MONO # 0.5 10^3/uL (0.0-0.8); MONO % 5.6 % (2.0-8.0); NEUTROPHILS # 6.3 10^3/uL (1.5-8.5); NEUTROPHILS % 68.4 % (36.0-66.0); PLATELET COUNT, AUTOMATED 231 10^3/uL (150-450); RED BLOOD COUNT 5.42 10^6/uL (4.30-6.10); WHITE BLOOD COUNT 9.2 10^3/uL (4.0-10.0)
[2023-08-20 18:33] LABS: INR 0.98; PROTHROMBIN TIME 12.7 SECONDS (12.5-14.5)
[2023-08-20 18:34] LABS: PARTIAL THROMBOPLASTIN TIME 25.6 SECONDS (24.8-34.2)
[2023-08-20 18:40] LABS: ERYTHROCYTE SEDIMENTATION RATE 48 mm/hr (0-20)
[2023-08-20 18:48] LABS: ALBUMIN 3.3 G/DL (3.2-5.2); ALKALINE PHOSPHATASE 80 U/L (46-116); ALT/SGPT 30 U/L (7.0-40); AST/SGOT 35 U/L (<34); BILIRUBIN,DIRECT 0.1 MG/DL (<0.4); BILIRUBIN,TOTAL 0.5 MG/DL (0.3-1.2); BLOOD UREA NITROGEN 15 MG/DL (9-23); CALCIUM LEVEL 9.2 MG/DL (8.5-10.1); CARBON DIOXIDE LEVEL 27 MMOL/L (20-31); CHLORIDE LEVEL 101 MMOL/L (98-107); GLOMERULAR FILTRATION RATE > 60.0 (>56); GLUCOSE, FASTING 270 MG/DL (60-100); SODIUM LEVEL 135 MMOL/L (136-145); TOTAL PROTEIN 6.7 G/DL (5.7-8.2)
[2023-08-20 20:53] VITALS: BP 132/86; TEMP 98; O2SAT 97
== END 2023-08-20 21:00 | disposition home or self-care (01) ==
LOC: M ED 17:20
DX: G89.18 Other acute postprocedural pain (principal); G56.01 Carpal tunnel syndrome, right upper limb; E11.9 Type 2 diabetes mellitus without complications; I12.9 Hypertensive chronic kidney disease with stage 1 through stage 4 chronic kidney disease, or unspecified chronic kidney disease; F10.10 Alcohol abuse, uncomplicated; M10.9 Gout, unspecified; Z88.9 Allergy status to unspecified drugs, medicaments and biological substances; Z91.09 Other allergy status, other than to drugs and biological substances; Z79.899 Other long term (current) drug therapy; Z79.84 Long term (current) use of oral hypoglycemic drugs; Z79.1 Long term (current) use of non-steroidal anti-inflammatories (NSAID)

== ENCOUNTER → 2024-04-10 | Outpatient (CLI) | payer OTHER ==
[2024-04-10 15:53] LABS: BASO # 0.1 10^3/uL (0.0-0.2); BASO % 0.6 % (0.0-1.0); EOS # 0.3 10^3/uL (0.0-0.5); EOS % 2.6 % (0.0-3.0); HEMATOCRIT 50.5 % (42.0-52.0); LYMPH # 2.4 10^3/uL (1.5-5.0); LYMPH % 25.3 % (24.0-44.0); MEAN CORPUSCULAR HGB CONC 33.7 g/dl (32.0-36.5); MONO # 0.7 10^3/uL (0.0-0.8); MONO % 7.4 % (2.0-8.0); NEUTROPHILS # 6.1 10^3/uL (1.5-8.5); NEUTROPHILS % 63.8 % (36.0-66.0); PLATELET COUNT, AUTOMATED 267 10^3/uL (150-450); RED BLOOD COUNT 5.49 10^6/uL (4.30-6.10); WHITE BLOOD COUNT 9.5 10^3/uL (4.0-10.0)
[2024-04-10 15:55] LABS: URIC ACID 5.9 MG/DL (3.7-9.2)
[2024-04-10 15:58] LABS: ALBUMIN 3.6 G/DL (3.2-5.2); ALKALINE PHOSPHATASE 90 U/L (46-116); ALT/SGPT 31 U/L (7.0-40); AST/SGOT 15 U/L (<34); BILIRUBIN,TOTAL 0.6 MG/DL (0.3-1.2); BLOOD UREA NITROGEN 20 MG/DL (9-23); CALCIUM LEVEL 10.5 MG/DL (8.5-10.1); CARBON DIOXIDE LEVEL 28 MMOL/L (20-31); CHLORIDE LEVEL 101 MMOL/L (98-107); CHOLESTEROL LEVEL 172 MG/DL (<200); CREATININE FOR GFR 1.18 MG/DL (0.70-1.30); GLOMERULAR FILTRATION RATE > 60.0 (>56); GLUCOSE, FASTING 214 MG/DL (60-100); HDL CHOLESTEROL 34.4 MG/DL (>40); NON-HDL-C 137.6 MG/DL; POTASSIUM SERUM 4.8 MMOL/L (3.5-5.1); SODIUM LEVEL 135 MMOL/L (136-145); TOTAL PROTEIN 7.5 G/DL (5.7-8.2); TRIGLYCERIDES LEVEL 263 MG/DL (<150)
[2024-04-10 15:59] LABS: CREATININE, URINE 40.1 MG/DL
[2024-04-10 16:03] LABS: FOLATE 19.78 NG/ML (>5.4)
[2024-04-10 16:05] LABS: VITAMIN B12 LEVEL 725 PG/ML (211-911)
[2024-04-10 16:14] LABS: MAU/CREAT RATIO 1546.1 MCG/MG (0.0-30.0)
[2024-04-10 16:25] LABS: HEMOGLOBIN A1c 9.7 % (4.0-6.0)
== END ==
LOC: M PLALAB 13:50
PROVIDERS: ATTEND Nurse Practitioner Family
DX: E11.9 Type 2 diabetes mellitus without complications (principal); E78.5 Hyperlipidemia, unspecified; E53.8 Deficiency of other specified B group vitamins; M10.9 Gout, unspecified; E55.9 Vitamin D deficiency, unspecified

== ENCOUNTER 2024-04-29 05:48 | Emergency (ER) | payer OTHER ==
[~2024-04-29] VITALS: Ht 188 cm; Wt 130.9 kg
[~2024-04-29 05:48] MED LIST changes: +GABA-1172 PO; -GABA-282 PO
[2024-04-29 05:49] VITALS: TEMP 97
[2024-04-29] MEDS: NORCO, ANEXSIA 5/325MG TABLET (HYDROcodone/ACETAMINOPHEN) PO ONE (07:18)
[2024-04-29] MEDS: KETOROLAC 30 MG/ML 1ML VIAL IM ONE (09:06)
[2024-04-29] MEDS ORDERED: ASPE4PAD TOP (09:41)
[2024-04-29] MEDS ORDERED: METH-1165 PO (09:41)
[2024-04-29 10:00] VITALS: O2SAT 97
[2024-04-29 10:01] VITALS: BP 113/56
== END 2024-04-29 10:13 | disposition home or self-care (01) ==
LOC: M ED 05:48
DX: S50.02XA Contusion of left elbow, initial encounter (principal); M54.50 Low back pain, unspecified; W10.8XXA Fall (on) (from) other stairs and steps, initial encounter; Y92.009 Unspecified place in unspecified non-institutional (private) residence as the place of occurrence of the external cause; Y93.9 Activity, unspecified; Y99.9 Unspecified external cause status; E11.42 Type 2 diabetes mellitus with diabetic polyneuropathy; G47.33 Obstructive sleep apnea (adult) (pediatric); I10 Essential (primary) hypertension; Z79.82 Long term (current) use of aspirin; Z79.84 Long term (current) use of oral hypoglycemic drugs; Z79.899 Other long term (current) drug therapy; Z91.89 Other specified personal risk factors, not elsewhere classified
CPT/HCPCS: 72128; 72131; 73080; 96372; 99284; J1885

== ENCOUNTER 2024-05-16 12:43 | Outpatient (RCR) | payer OTHER ==
[~2024-05-16 12:43] MED LIST changes: +ASPE4PAD TOP; +METH-1165 PO
== END 2024-05-24 ==
LOC: M PT 12:43
PROVIDERS: ATTEND Nurse Practitioner Family
DX: R42 Dizziness and giddiness (principal)

== ENCOUNTER → 2024-06-13 | Outpatient (REF) | payer OTHER ==
[~2024-06-13] MED LIST changes: -POTA10808; -POTA10808 PO; +POTA10809; +POTA10809 PO
== END ==
LOC: M LAB REF 17:12
PROVIDERS: ATTEND Nurse Practitioner Family
DX: N39.0 Urinary tract infection, site not specified (principal)

== ENCOUNTER → 2024-08-06 | Outpatient (CLI) | payer OTHER | LOC: M SOG 07:55 | PROVIDERS: ATTEND Physician Assistant | DX: M17.12 Unilateral primary osteoarthritis, left knee (principal) ==

== ENCOUNTER → 2024-09-03 | Outpatient (CLI) | payer OTHER | LOC: M SOG 13:02 | PROVIDERS: ATTEND Physician Assistant | DX: M25.562 Pain in left knee (principal) ==

== ENCOUNTER 2024-10-06 00:43 | Emergency (ER) | payer OTHER ==
[~2024-10-06] VITALS: Ht 188 cm; Wt 133.0 kg
[~2024-10-06 00:43] MED LIST changes: +GLIP-318; -GLIP5TAB20
[2024-10-06] MEDS ORDERED: ALLO300T2 (00:55)
[2024-10-06] MEDS ORDERED: ERGO500029 (00:55)
[2024-10-06] MEDS ORDERED: CYCL-707 (00:55)
[2024-10-06] MEDS: LIDOCAINE 1% MDV 20ML VIAL SC ONE (01:33)
[2024-10-06] MEDS: BOOSTRIX VACCINE (TETANUS/DIPHTH/ACEL. PERTUSSIS) 0.5ML SYR IM ONE (02:31)
[2024-10-06 02:37] VITALS: BP 130/78; TEMP 97.9; O2SAT 93
== END 2024-10-06 02:41 | disposition home or self-care (01) ==
LOC: M ED 00:43
DX: S61.411A Laceration without foreign body of right hand, initial encounter (principal); W26.9XXA Contact with unspecified sharp object(s), initial encounter; Y92.009 Unspecified place in unspecified non-institutional (private) residence as the place of occurrence of the external cause; Y93.G1 Activity, food preparation and clean up; Y99.9 Unspecified external cause status; J30.89 Other allergic rhinitis; Z79.82 Long term (current) use of aspirin; Z79.01 Long term (current) use of anticoagulants; Z88.8 Allergy status to other drugs, medicaments and biological substances; Z91.89 Other specified personal risk factors, not elsewhere classified

== ENCOUNTER → 2024-11-20 | Outpatient (REF) | payer OTHER, MEDICARE ==
[~2024-11-20] MED LIST changes: +ALLO300T2; +CYCL-707; +ERGO500029
[2024-11-20 17:46] LABS: CREATININE,RANDOM URINE 42.7 MG/DL
[2024-11-20 17:47] LABS: TOTAL PROTEIN,RANDOM URINE 281.7 MG/DL (0.0-14.0)
== END ==
LOC: M LAB REF 16:47
PROVIDERS: ATTEND Nurse Practitioner Family
DX: R80.9 Proteinuria, unspecified (principal)

== ENCOUNTER → 2025-03-05 | Outpatient (CLI) | payer OTHER ==
[2025-03-05 12:14] LABS: CREATININE FOR GFR 1.12 MG/DL (0.70-1.30); GLOMERULAR FILTRATION RATE 78.1 (>56)
== END ==
LOC: M LAB 11:17
PROVIDERS: ATTEND Psychiatry & Neurology Neurology
DX: I10 Essential (primary) hypertension (principal)

== ENCOUNTER → 2025-03-13 | Outpatient (REF) | payer OTHER ==
[2025-03-13 17:58] LABS: TOTAL PROTEIN,RANDOM URINE 176.9 MG/DL (0.0-14.0)
== END ==
LOC: M LAB REF 17:06
PROVIDERS: ATTEND Nurse Practitioner Family
DX: R80.9 Proteinuria, unspecified (principal)

== ENCOUNTER → 2025-04-16 | Outpatient (CLI) | payer OTHER ==
[~2025-04-16] MED LIST changes: +LIFI1DRO4; +MECL-86; +TIRZ7.5P
== END ==
LOC: M RAD 07:15
PROVIDERS: ATTEND Internal Medicine Medical Oncology
DX: D75.1 Secondary polycythemia (principal)